=== PATIENT | female | born 1930 | race Caucasian/White ===

== ENCOUNTER 2016-06-26 07:15 | Emergency (ER) | payer MEDICARE ==
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
[2016-06-26 09:56] VITALS: BP 159/57
== END 2016-06-26 09:45 | disposition home or self-care (01) ==
LOC: ER 07:15
DX: R07.89 Other chest pain (principal); S00.81XA Abrasion of other part of head, initial encounter; W18.31XA Fall on same level due to stepping on an object, initial encounter; Z91.81 History of falling; Y93.E9 Activity, other interior property and clothing maintenance; Y92.122 Bedroom in nursing home as the place of occurrence of the external cause; E11.9 Type 2 diabetes mellitus without complications; Z79.4 Long term (current) use of insulin

== ENCOUNTER 2016-09-08 18:36 | Emergency (ER) | payer MEDICARE ==
--- NOTE | 2016-09-08 18:51 | ERNOTE ---
Date of Service: 09/08/16 Time Seen by Provider: 09/08/16 18:49 Stated Complaint: EDEMIA Presenting Symptoms:: cough Source: patient, RN notes reviewed, past records Exam Limitations: hard of hearing Immunizations: IMMUNIZATION HX Immunizations Up to Date Yes History of Influenza Vaccine Yes Hx Pneumococcal Vaccination Yes Allergies/Adverse Reactions: Allergies No Known Allergies Allergy (Verified 06/26/16 07:32) Home Medications: HOME MEDICATIONS Acetaminophen [Acetaminophen ER] 650 mg PO Q6H PRN 09/08/16 [Last Taken Unknown] Brimonidine Tartrate [Alphagan P 0.1% Ophthalmic Solution] 1 drop EACHEYE BID [Last Taken Unknown] Digoxin [Lanoxin] 0.125 mg PO DAILY 09/08/16 [Last Taken Unknown] Docusate Sodium [Doc-Q-Lace] 100 mg PO BID PRN 09/08/16 [Last Taken Unknown] Fluticasone Propionate [Flonase] 2 spray NS DAILY 09/08/16 [Last Taken Unknown] Furosemide 20 mg PO BID 09/08/16 [Last Taken Unknown] HYDROcodone/ACETAMINOPHEN [[place] 5-325] 1 tab PO Q8H PRN 09/08/16 [Last Taken Unknown] Insulin Glargine,Hum.rec.anlog [Lantus] 30 units SC HS 09/08/16 [Last Taken Unknown] Insulin Glargine,Hum.rec.anlog [Lantus] 50 units SC [facility] 09/08/16 [Last Taken Unknown] Loperamide HCl [Imodium A-D] 2 mg PO QID PRN 09/08/16 [Last Taken Unknown] Metoprolol Succinate [Toprol Xl] 100 mg PO HS 09/08/16 [Last Taken Unknown] Multivit,Tx with Iron,Minerals [Thera-M] 1 each PO DAILY 09/08/16 [Last Taken Unknown] Olmesartan Medoxomil [Benicar] 40 mg PO DAILY 09/08/16 [Last Taken Unknown] Potassium Chloride [Klor-Con 10] 10 meq PO BID 09/08/16 [Last Taken Unknown] Sennosides [Senna Lax] 8.6 mg PO BID PRN 09/08/16 [Last Taken Unknown] Simvastatin 10 mg PO HS 09/08/16 [Last Taken Unknown] - History of Present Ilness Narrative: Audrey is an 86-year-old female brought to the emergency department from the [facility] by a caregiver for a cough that has been ongoing for 3 weeks and increased swelling in her legs and feet that was just noticed today. She also reports some nasal congestion and drainage. She admits to sitting a lot without her feet elevated. She denies any discomfort. Frequency/Possible Cause: Reports: unknown cause Prior Treatment: Denies: recently seen Review of Systems - Review of Systems Constitutional: Absent: recent illness, fever, chills, fatigue, malaise EYE: Present: no symptoms reported ENT: Present: nose congestion, nasal drainage. Absent: sore throat Respiratory: Present: cough. Absent: shortness of breath, wheezing Cardiology: Present: edema. Absent: chest pain, claudication Gastrointestinal/Abdominal: Absent: eating less, drinking less Genitourinary: Present: no symptoms reported Musculoskeletal: Absent: muscle pain, joint pain Skin: Absent: rash, lesions, change in color Neurological: Absent: dizziness/light-headedness, weakness Endocrine: Present: no symptoms reported Hematologic/Lymphatic: Present: no symptoms reported Psych: Present: no symptoms reported - Patient's Past Medical History Patient History - Medical: Diabetes Type 2 Insulin Dependent, Dementia, Glaucoma Patient History - Cardiac/Respiratory: Atrial Fibrillation, Hypertension, Hyperlipidemia Patient History - Cancer: Melanoma Patient History - Surgical Procedures: Hysterectomy, Total Knee Replacement Patient History - Other: None - Social History Living Situations: assisted living Abuse History: No History of abuse Psych History: No pertinent hx Smoking Status: Never smoker Alcohol Use: none Drug Use: none - Immunizations Immunizations Up to Date: Yes Hx Pneumococcal Vaccination: Yes History of Influenza Vaccine: Yes Physical Exam - Physical Exam General Appearance: Present: wd/wn, alert, no apparent distress Eye Exam: Normal inspection: bilateral Ears, Nose, Throat: Present: hearing decreased, nasal congestion. Absent: sinus pain/drainage, pharyngeal erythema, pharyngeal swelling, dry mucous membranes Neck: Present: normal inspection, nontender, supple Respiratory: Present: no respiratory distress, normal breath sounds, no accessory muscle use, lungs clear Cardiovascular/Chest: Present: regular rate, rhythm, normal peripheral pulses, systolic murmur Extremity Exam: Present: normal range of motion, pedal edema - bilateral 3+ Neurological Exam: Present: alert, oriented, normal mood/affect, no motor/ sensory deficits Skin Exam: Present: normal color, warm/dry ED Progress - Results and Orders Patient's Lab Results:: I have reviewed the patient's lab results. - Vital Signs Patient's Vital Signs:: I have reviewed the patient's vital signs. Vital Signs: Vital Signs 09/08/16 18:40 Temperature 36.6 C Pulse Rate 69 Respiratory 18 Rate Blood Pressure 150/77 O2 Sat by Pulse 97 Oximetry - X-Ray X-Ray #1 X-Ray: chest Interpretation: Reviewed by me X-ray Comments: No acute cardiopulmonary process noted - Progress/Reassessment Chief Complaint: Cough Progress:: Unchanged Plan - Plan Plan: Patient is well appearing and reports that she is feeling fine. Her labs are essentially unremarkable. Her digoxin level is low at 0.2, but was 0.1 when last checked. Patient to continue current plan of care, encouraged to stay out of the heat and try to elevated her feet more. Departure - Departure Clinical Impression: Cough, Bilateral lower extremity edema Disposition: [place] self-care Condition: Good Instructions: Edema, [id number] Additional Instructions: Continue your routine medications Follow up with your doctor as needed Referrals: Cristo Olmedo MD [Primary Care Provider] -
[2016-09-08 19:07] LABS: Hematocrit 39.4 % (37.0-47.0); Hemoglobin 12.6 gm/dL (12.5-16.0); Mean Cell Volume 92.9 fl (78-100); Mean Corpuscular Hemoglobin 29.7 pg (27-31); Mean Platelet Volume 10.3 fl (6.0-9.5); Neutrophil # 4.3 K/mm3 (1.3-6.0); Neutrophil % 58.4 % (42-75.0); Platelet Count 169 K/mm3 (150-450); Red Blood Count 4.24 M/mm3 (4.2-5.4); Red Cell Distribution Width 13.1 % (11.5-14.0); White Blood Count 7.3 K/mm3 (4.0-10.5)
[2016-09-08 19:31] LABS: Albumin * 3.6 gm/dl (3.4-5.0); Anion Gap 8.3 mmol/L (6.8-13.8); BUN/Creatinine Ratio 24.6 (9.0-21.6); Bilirubin, Total 0.3 mg/dL (0.0-1.1); Ca. Corrected For Albumin 10.3 mg/dL (8.4-10.2); Calcium * 10.3 mg/dL (7.9-10.9); Potassium 4.3 mmol/L (3.4-4.6); Total Protein 6.8 gm/dL (6.2-8.2)
[2016-09-08 19:46] LABS: Digoxin 0.2 ng/mL (0.5-2.0)
[2016-09-08 19:55] VITALS: BP 168/48
== END 2016-09-08 20:09 | disposition home or self-care (01) ==
LOC: ER 18:36
DX: R05 Cough (principal); R60.0 Localized edema; E11.9 Type 2 diabetes mellitus without complications; Z79.4 Long term (current) use of insulin; I48.91 Unspecified atrial fibrillation; Z79.01 Long term (current) use of anticoagulants; I10 Essential (primary) hypertension; E78.5 Hyperlipidemia, unspecified; Z85.820 Personal history of malignant melanoma of skin

== ENCOUNTER 2017-03-24 18:49 | Emergency (ER) | payer MEDICARE ==
--- NOTE | 2017-03-24 19:36 | ERNOTE ---
Neuro HPI ER Record Date of Service: 03/24/17 Presenting Symptoms: other - shaky Time Seen by Provider: 03/24/17 19:19 Source: patient, family Exam Limitations: hard of hearing Immunizations: IMMUNIZATION HX Immunizations Up to Date Yes History of Influenza Vaccine Yes Hx Pneumococcal Vaccination Yes Allergies/Adverse Reactions: Allergies Allergy/AdvReac Type Severity Reaction Status Date / Time No Known Allergies Allergy Verified 03/24/17 19:01 Home Medications: HOME MEDICATIONS Acetaminophen [Acetaminophen ER] 650 mg PO Q6H PRN 09/08/16 [Last Taken Unknown] Brimonidine Tartrate [Alphagan P 0.1% Ophthalmic Solution] 1 drop EACHEYE BID [Last Taken Unknown] Digoxin [Lanoxin] 0.125 mg PO DAILY 09/08/16 [Last Taken Unknown] Docusate Sodium [Doc-Q-Lace] 100 mg PO BID PRN 09/08/16 [Last Taken Unknown] Fluticasone Propionate [Flonase] 2 spray NS DAILY 09/08/16 [Last Taken Unknown] Furosemide 20 mg PO BID 09/08/16 [Last Taken Unknown] HYDROcodone/ACETAMINOPHEN [[place] 5-325] 1 tab PO Q8H PRN 09/08/16 [Last Taken Unknown] Insulin Glargine,Hum.rec.anlog [Lantus] 30 units SC HS 09/08/16 [Last Taken Unknown] Insulin Glargine,Hum.rec.anlog [Lantus] 50 units SC [facility] 09/08/16 [Last Taken Unknown] Loperamide HCl [Imodium A-D] 2 mg PO QID PRN 09/08/16 [Last Taken Unknown] Metoprolol Succinate [Toprol Xl] 100 mg PO HS 09/08/16 [Last Taken Unknown] Multivit,Tx with Iron,Minerals [Thera-M] 1 each PO DAILY 09/08/16 [Last Taken Unknown] Olmesartan Medoxomil [Benicar] 40 mg PO DAILY 09/08/16 [Last Taken Unknown] Potassium Chloride [Klor-Con 10] 10 meq PO BID 09/08/16 [Last Taken Unknown] Sennosides [Senna Lax] 8.6 mg PO BID PRN 09/08/16 [Last Taken Unknown] Simvastatin 10 mg PO HS 07/13/17 [Last Taken Unknown] - History of Present Illness Narrative: Patient presents to the ED for an episode of shakiness. This is the second time this has happened. It happened last Monday also. She both times was at dinner and became shaky all over and was confused last time. Tonight this was associated with a near syncopal episode. No actual syncope. Both times Sx transient. Now Sx resolved. No focal weakness. No CP or SOB. Onset: other - dinner time Severity: moderate - Character of Deficits Additional Deficits: Absent: vision problems, difficulty swallowing Associated Symptoms: Denies: fever/chills, chest pain, neck/back pain, headache , seizure Prior Treament: Denies: recently seen Review of Systems - Review of Systems Constitutional: Absent: fever Respiratory: Absent: shortness of breath Cardiology: Absent: chest pain Gastrointestinal/Abdominal: Absent: abdominal pain Genitourinary: Absent: dysuria Musculoskeletal: Absent: neck pain Skin: Absent: rash Neurological: Present: See HPI - Patient's Past Medical History Patient History - Medical: Alzheimer's Disease, Diabetes Type 2 Insulin Dependent, Dementia, Glaucoma Patient History - Cardiac/Respiratory: Atrial Fibrillation, Hypertension, Hyperlipidemia Patient History - Cancer: Melanoma Patient History - Surgical Procedures: Hysterectomy, Total Knee Replacement Patient History - Other: None - Social History Abuse History: No History of abuse Psych History: No pertinent hx Smoking Status: Former smoker Alcohol Use: none Drug Use: none - Immunizations Immunizations Up to Date: Yes Hx Pneumococcal Vaccination: Yes History of Influenza Vaccine: Yes Physical Exam - Physical Exam General Appearance: Present: alert, no apparent distress Head Exam: Present: normal inspection, no evidence of injury Eye Exam: Normal inspection: bilateral, PERRL: bilateral Ears, Nose, Throat: Present: normal ENT inspection Neck: Present: normal inspection Respiratory: Present: no respiratory distress, normal breath sounds, no accessory muscle use, lungs clear Cardiovascular/Chest: Present: regular rate, rhythm Gastrointestinal/Abdominal: Present: normal bowel sounds, nontender, nondistended, soft Back Exam: Absent: CVA tenderness (R), CVA tenderness (L) Extremity Exam: Present: normal inspection Neurological Exam: Present: alert, normal mood/affect, no motor/sensory deficits , other - NIH - 0 Skin Exam: Present: normal color, warm/dry ED Progress - Results and Orders Patient's Lab Results:: I have reviewed the patient's lab results. - Vital Signs Patient's Vital Signs:: I have reviewed the patient's vital signs. Vital Signs: Vital Signs 03/24/17 03/24/17 18:52 19:00 Temperature 36.6 C 36.6 C Pulse Rate 60 60 Respiratory 16 16 Rate Blood Pressure 173/29 173/29 O2 Sat by Pulse 98 98 Oximetry - Progress/Reassessment Chief Complaint: Altered Mental Status - Transfer of Care Physician Sign Out: Austin Singh Receiving Physician: Lola Bonilla Pending Results: Labs Expected Disposition: Discharge Departure Clinical Impression: Shakiness - Departure Disposition: Home self-care Condition: Stable Referrals: Cristo lOmedo MD [Primary Care Provider] -
[2017-03-24 20:12] LABS: Hematocrit 39.5 % (37.0-47.0); Hemoglobin 12.7 gm/dL (12.5-16.0); Mean Corpuscular Hemoglobin 30.5 pg (27-31); Mean Corpuscular Hgb Conc 32.2 g/dl (32-36); Mean Platelet Volume 10.5 fl (6.0-9.5); Neutrophil # 2.9 K/mm3 (1.3-6.0); Neutrophil % 47.4 % (42-75.0); Platelet Count 124 K/mm3 (150-450); Red Blood Count 4.16 M/mm3 (4.2-5.4); Red Cell Distribution Width 12.6 % (11.5-14.0)
[2017-03-24 20:36] LABS: ALT 22 U/L (19-67); AST 17 U/L (0-48); Albumin * 3.2 gm/dl (3.4-5.0); Alkaline Phosphatase * 101 U/L (50-170); BUN/Creatinine Ratio 28.7 (9.0-21.6); Bilirubin, Total 0.3 mg/dL (0.0-1.1); Blood Urea Nitrogen 35 mg/dL (3-23); Ca. Corrected For Albumin 10.6 mg/dL (8.4-10.2); Calcium * 10.3 mg/dL (7.9-10.9); Chloride 108 mmol/L (97-106); Digoxin 0.1 ng/mL (0.5-2.0); Glucose * 159 mg/dL (70-110); Sodium 141 mmol/L (132-142); Total Protein 6.3 gm/dL (6.2-8.2); Troponin I Less than 0.017 ng/ml (0.00-0.10)
[2017-03-24 20:45] LABS: Urine Bilirubin Negative (NEGATIVE); Urine Blood 50 /ul (NEGATIVE); Urine Ketone Negative (NEGATIVE); Urine Nitrite Negative (NEGATIVE); Urine Protein Negative (NEGATIVE); Urine Specific Gravity 1.015 SP.GR. (1.005-1.010); Urine Urobilinogen Normal (NORMAL)
[2017-03-24 21:09] LABS: Urine Appearance Clear; Urine Bacteria TRACE; Urine Color Yellow; Urine RBC 0-5 /hpf (0-5); Urine WBC 0-5 /hpf (0-5)
[2017-03-24 22:27] VITALS: BP 122/65
--- NOTE | 2017-03-24 22:31 | ERNOTE ---
Neuro HPI ER Record Time Seen by Provider: 03/24/17 19:19 Immunizations: IMMUNIZATION HX Immunizations Up to Date Yes History of Influenza Vaccine Yes Hx Pneumococcal Vaccination Yes Allergies/Adverse Reactions: Allergies Allergy/AdvReac Type Severity Reaction Status Date / Time No Known Allergies Allergy Verified 03/24/17 19:01 Home Medications: HOME MEDICATIONS Acetaminophen [Acetaminophen ER] 650 mg PO Q6H PRN 09/08/16 [Last Taken Unknown] Brimonidine Tartrate [Alphagan P 0.1% Ophthalmic Solution] 1 drop EACHEYE BID [Last Taken Unknown] Docusate Sodium [Doc-Q-Lace] 100 mg PO BID PRN 09/08/16 [Last Taken Unknown] Fluticasone Propionate [Flonase] 2 spray NS DAILY 09/08/16 [Last Taken Unknown] Furosemide 20 mg PO BID 09/08/16 [Last Taken Unknown] Insulin Glargine,Hum.rec.anlog [Lantus] 30 units SC HS 09/08/16 [Last Taken Unknown] Insulin Glargine,Hum.rec.anlog [Lantus] 40 units SC [facility] 09/08/16 [Last Taken Unknown] Metoprolol Succinate [Toprol Xl] 100 mg PO HS 09/08/16 [Last Taken Unknown] Multivit,Tx with Iron,Minerals [Thera-M] 1 each PO DAILY 09/08/16 [Last Taken Unknown] Potassium Chloride [Klor-Con 10] 10 meq PO BID 09/08/16 [Last Taken Unknown] Sennosides [Senna Lax] 8.6 mg PO BID PRN 09/08/16 [Last Taken Unknown] Simvastatin 10 mg PO HS 09/08/16 [Last Taken Unknown] Digoxin [Digitek] 0.5 tab PO Q48H 03/24/17 [Last Taken Unknown] Losartan Potassium [Cozaar] 50 mg PO DAILY 03/24/17 [Last Taken Unknown] - History of Present Illness Narrative: Care taken over to follow up on lab results. Report received from Dr. Singh. I visited the patient and her daughter, explained what we are doing, the daughter verbalized understanding. She explained her problems, she spends one week with her mom (the patient) and one week with her [id number] who has ALS. The daughter just wanted to make sure that Mom's labs were good. We discussed further evaluation on an outpatient basis with a neurologist, daughter will decide that later. - Patient's Past Medical History Patient History - Medical: Alzheimer's Disease, Diabetes Type 2 Insulin Dependent, Dementia, Glaucoma Patient History - Cardiac/Respiratory: Atrial Fibrillation, Hypertension, Hyperlipidemia Patient History - Cancer: Melanoma Patient History - Surgical Procedures: Hysterectomy, Total Knee Replacement Patient History - Other: None - Social History Abuse History: No History of abuse Psych History: No pertinent hx Smoking Status: Former smoker Alcohol Use: none Drug Use: none - Immunizations Immunizations Up to Date: Yes Hx Pneumococcal Vaccination: Yes History of Influenza Vaccine: Yes ED Progress - Results and Orders Patient's Lab Results:: I have reviewed the patient's lab results. Results and Orders: Laboratory Results - last 24 hr 03/24/17 03/24/17 03/24/17 20:10 20:10 20:10 WBC 6.0 RBC 4.16 L Hgb 12.7 Hct 39.5 MCV 95.0 MCH 30.5 MCHC 32.2 RDW 12.6 Plt Count 124 L MPV 10.5 H Immature Gran % (Auto) 0.20 Immature Gran # (Auto) 0.01 Neutrophils % 47.4 Lymphocytes % 39.6 Monocytes % 9.0 Eosinophils % 3.0 Basophils % 0.8 Nucleated RBC % 0.0 Neutrophils # 2.9 Lymphocytes # 2.4 Monocytes # 0.5 Eosinophils # 0.2 Absolute Basophils 0.1 Sodium 141 Plasma Sodium 142 Potassium 4.0 Chloride 108 H Carbon Dioxide 30.0 Anion Gap 7.0 BUN 35 H Creatinine 1.22 Est GFR (Non-Af Amer) 44 L BUN/Creatinine Ratio 28.7 H Random Glucose 159 H Lactic Acid, Venous 1.2 Calcium 10.3 Calcium Adj for Albumin 10.6 H Total Bilirubin 0.3 AST 17 ALT 22 Alkaline Phosphatase 101 Troponin I Less than 0.017 Total Protein 6.3 Albumin 3.2 L Urine Color Urine Appearance Urine pH Ur Specific [place] Urine Protein Urine Glucose (UA) Urine Ketones Urine Blood Urine Nitrate Urine Bilirubin Urine Urobilinogen Ur Leukocyte Esterase Urine RBC Urine WBC Ur Epithelial Cells Urine Bacteria Urine Culture Comments Digoxin 0.1 L 03/24/17 20:22 WBC RBC Hgb Hct MCV MCH MCHC RDW Plt Count MPV Immature Gran % (Auto) Immature Gran # (Auto) Neutrophils % Lymphocytes % Monocytes % Eosinophils % Basophils % Nucleated RBC % Neutrophils # Lymphocytes # Monocytes # Eosinophils # Absolute Basophils Sodium Plasma Sodium Potassium Chloride Carbon Dioxide Anion Gap BUN Creatinine Est GFR (Non-Af Amer) BUN/Creatinine Ratio Random Glucose Lactic Acid, Venous Calcium Calcium Adj for Albumin Total Bilirubin AST ALT Alkaline Phosphatase Troponin I Total Protein Albumin Urine Color Yellow Urine Appearance Clear Urine pH 6.0 Ur Specific [place] 1.015 Urine Protein Negative Urine Glucose (UA) Negative Urine Ketones Negative Urine Blood 50 H Urine Nitrate Negative Urine Bilirubin Negative Urine Urobilinogen Normal Ur Leukocyte Esterase Negative Urine RBC 0-5 Urine WBC 0-5 Ur Epithelial Cells 5-10 H Urine Bacteria Trace Urine Culture Comments No culture indicated Digoxin - Vital Signs Patient's Vital Signs:: I have reviewed the patient's vital signs. Vital Signs: Vital Signs 03/24/17 03/24/17 03/24/17 18:52 19:00 20:45 Temperature 36.6 C 36.6 C Pulse Rate 60 60 58 L Respiratory 16 16 12 Rate Blood Pressure 173/29 173/29 179/49 O2 Sat by Pulse 98 98 98 Oximetry - EKG EKG: RBBB, other - Sinus bradycardia with a first degree AV Block EKG read: Interp. by me EKG Comments: Done at 20:06 - Progress/Reassessment Chief Complaint: Altered Mental Status Progress Note-Subjective: 03/24/17 22:20 I reviewed the patient's lab results, and compared them to previous visits. She appears mildly dehydrated but otherwise well. I discussed this with the daughter , [facility] Departure Clinical Impression: Shakiness, Episodes of decreased attentiveness - Departure Disposition: [place] self-care Condition: Stable Instructions: Confusion Referrals: Cristo Olmedo MD [Primary Care Provider] - (3-5 days)
== END 2017-03-24 22:46 | disposition home or self-care (01) ==
LOC: ER 18:49
DX: R25.1 Tremor, unspecified (principal); R41.89 Other symptoms and signs involving cognitive functions and awareness; E11.9 Type 2 diabetes mellitus without complications; Z79.4 Long term (current) use of insulin; E78.5 Hyperlipidemia, unspecified; I10 Essential (primary) hypertension; I48.91 Unspecified atrial fibrillation; Z85.820 Personal history of malignant melanoma of skin; Z87.891 Personal history of nicotine dependence

== ENCOUNTER 2018-03-28 10:11 | Inpatient (IN) ==
--- NOTE | 2018-03-28 10:28 | ERNOTE ---
ER Female HPI Date of Service: 03/28/18 Stated Complaint: uti Presenting Symptoms: other - UTI, Alterred mental status Time Seen by Provider: 03/28/18 10:27 Source: family, EMS, RN notes reviewed, past records Exam Limitations: clinical condition Immunizations: IMMUNIZATION HX Immunizations Up to Date Yes History of Influenza Vaccine Yes Hx Pneumococcal Vaccination Yes Allergies/Adverse Reactions: Allergies aspirin Adverse Reaction (Verified 03/28/18 10:17) Gastric upset Home Medications: HOME MEDICATIONS Brimonidine Tartrate [Alphagan P 0.1% Ophthalmic Solution] 1 drp EACHEYE BID 09/08/16 [Last Taken Unknown] Multivit,Tx with Iron,Minerals [Thera-M] 1 ea PO DAILY 09/08/16 [Last Taken Unknown] fluticasone 50 mcg/actuation nasal spray,suspension 2 spray LIZBET DAILY #16 g 08/28/17 [Last Taken Unknown] sennosides 8.6 mg tablet 8.6 mg PO BID PRN #90 tab 08/28/17 [Last Taken Unknown] digoxin 125 mcg tablet See Rx Instructions PO .COMPLEX #90 tab 09/26/17 [Last Taken Unknown] alprazolam 0.25 mg tablet 0.25 mg PO TID PRN #30 tab 10/19/17 [Last Taken Unknown] blood sugar diagnostic strips See Dose Instructions .ROUTE .MEDSUPPLY #20 ea 10/26/17 [Last Taken Unknown] insulin syringe U-100 with needle 0.5 mL 31 gauge x 5/16" See Dose Instructions .ROUTE .MEDSUPPLY #10 ea 10/26/17 [Last Taken Unknown] lancets 30 gauge See Dose Instructions .ROUTE .MEDSUPPLY #25 ea 10/26/17 [Last Taken Unknown] lancing device with lancets kit See Dose Instructions .ROUTE .MEDSUPPLY #1 ea 10/26/17 [Last Taken Unknown] pen needle,diabetic dual safety 30 gauge x 3/16" See Dose Instructions .ROUTE .MEDSUPPLY #100 ea 10/26/17 [Last Taken Unknown] simvastatin 10 mg tablet 10 mg PO HS #90 tab 11/29/17 [Last Taken Unknown] acetaminophen ER 650 mg tablet,extended release 1,300 mg PO BID #360 tab 11/30/17 [Last Taken Unknown] alcohol swabs See Rx Instructions TP .COMPLEX #4000 ea 11/30/17 [Last Taken Unknown] insulin glargine (U-100) 100 unit/mL (3 mL) subcutaneous pen 10 unit SUB-Q DAILY #15 ml 03/07/18 [Last Taken Unknown] blood sugar diagnostic strips See Dose Instructions .ROUTE .MEDSUPPLY #100 ea 03/13/18 [Last Taken Unknown] carbamide peroxide 6.5 % ear drops 1 drp OT DAILY PRN ml 03/14/18 [Last Taken Unknown] furosemide 20 mg tablet See Rx Instructions .ROUTE .COMPLEX #56 tablet 03/14/18 [Last Taken Unknown] losartan 50 mg tablet See Rx Instructions .ROUTE .COMPLEX #28 tablet 03/14/18 [Last Taken Unknown] metoprolol succinate ER 100 mg tablet,extended release 24 hr See Rx Instructions .ROUTE .COMPLEX #28 tablet 03/14/18 [Last Taken Unknown] potassium chloride ER 10 mEq tablet,extended release See Rx Instructions .ROUTE .COMPLEX #56 tablet 03/14/18 [Last Taken Unknown] bisacodyl 10 mg rectal suppository 10 mg [place] DAILY PRN 3 Days #5 ea 03/26/18 [Last Taken Unknown] Ciprofloxacin HCl [Cipro] 500 mg PO BID 03/27/18 [Last Taken Unknown] - History of Present Illness Narrative: Audrey is a 88 year old female brought to the ED for a UTI and altered mental status. She was diagnosed with a UTI on 03/23. Her urine culture grew e.coli that was pansensitive. She was started on Cipro on 03/26, but due to increasing confusion and agitation, she was only given one dose. I saw the patient yesterday. She was somnolent but arouseable on arrival. Her daughter reported that it had taken 3 staff members to get her up yesterday. She is normally ambulatory with her walker. Her WBC was mildly elevated, but her lactic acid was normal. Her chemistries were unremarkable. She was given a liter of IV NS and a gram of Rocephin IV. She became more alert and appeared to be feeling better. She was also taking fluids orally and took a dose of Cipro po. She became somnolent again when the ambulance arrived to take her back to the [facility] yesterday. She has continued to be very difficult to arouse. She intermittently grimaces and tremors. She has not had any medications or other oral intake. Prior Treatment: Present: recently seen, currently on antibiotics Review of Systems - Narrative Narrative: ROS limited, provided by daughter - Review of Systems Constitutional: Present: decreased activity level. Absent: fever EYE: Present: no symptoms reported ENT: Present: no symptoms reported Respiratory: Present: no symptoms reported Cardiology: Present: no symptoms reported Gastrointestinal/Abdominal: Present: eating less, drinking less. Absent: vomiting, diarrhea Genitourinary: Present: no symptoms reported Musculoskeletal: Present: no symptoms reported Skin: Present: no symptoms reported Neurological: Present: no symptoms reported Endocrine: Present: no symptoms reported Hematologic/Lymphatic: Present: no symptoms reported Psych: Present: no symptoms reported Medical History (Last Reviewed 03/28/18 @ 13:02 by Ashlie Valero NP) Osteoporosis (Chronic) Onset Date: ~07/13/99 Osteoarthritis (Chronic) Onset Date: Unknown Hypertension (Chronic) Onset Date: Unknown Hyperlipemia (Chronic) Onset Date: Unknown Diabetes mellitus, type II (Chronic) Onset Date: Unknown Dementia (Chronic) Onset Date: ~2015 Afib Alzheimer disease DNR (do not resuscitate) Glaucoma Onset Date: Unknown 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 Bernal ; 03/25/08 right, 02/12/08 left H/O cardiac catheterization Onset Date: Unknown H/O: hysterectomy Onset Date: ~1960 History of left knee replacement Onset Date: ~05/2006 Hx of colonoscopy Onset Date: Unknown Status post right knee replacement Onset Date: ~10/2006 Family History: Family History (Last Reviewed 03/28/18 @ 13:02 by Ashlie Valero NP) Father Diabetes Lymphoma Mother Degenerative arthritis of temporomandibular joint Brother Parkinsons Bladder cancer Arthritis Son Diabetes Hyperlipemia Daughter Hypertension Social History: Preferred Language Eritrean Smoking Status Never smoker Abuse History No History of abuse Psych History No pertinent hx Alcohol Use none Drug Use none (Last Updated 03/12/18 @ 10:33 by Cristo Olmedo MD) No Social History Section defined Physical Exam - Physical Exam General Appearance: Present: wd/wn, lethargic, other - Moans and tremors with attempts to awaken Head Exam: Present: normal inspection, no evidence of injury Eye Exam: Normal inspection: bilateral, PERRL: bilateral Ears, Nose, Throat: Present: normal except -, dry mucous membranes Respiratory: Present: no respiratory distress, normal breath sounds, no accessory muscle use, lungs clear Cardiovascular/Chest: Present: normal peripheral pulses, tachycardia, systolic murmur Gastrointestinal/Abdominal: Present: normal bowel sounds, nondistended, soft Extremity Exam: Present: normal inspection, no edema Neurological Exam: Absent: alert, oriented, normal mood/affect, no motor/sensory deficits Skin Exam: Present: normal color, warm/dry Progress - Results and Orders Patient's Lab Results:: I have reviewed the patient's lab results. - Vital Signs Patient's Vital Signs:: I have reviewed the patient's vital signs. Vital Signs: Vital Signs 03/28/18 10:11 Pulse Rate 108 H Respiratory Rate 15 Blood Pressure 205/68 H O2 Sat by Pulse Oximetry 98 - EKG EKG #1 EKG: NSR, RBBB EKG read: Reviewed by me - X-Ray X-Ray #1 X-Ray: chest Interpretation: Reviewed by me X-ray Comments: No acute cardiopulmonary process - CT/Ultrasound CT/Ultrasound Narrative: CT head is without acute intracranial abnormalities - Progress/Reassessment Chief Complaint: Urinary Tract Problems Progress:: Unchanged Plan - Plan Plan: Etiology of patient's altered mental status remains unclear. There does not appear to be an infectious source as her urine culture and blood cultures from yesterday do not show any growth and her WBC and lactate are normal. Chest xray is also unremarkable. Her EKG and troponin are negative for any indication of a cardiac event. Her head CT does not show any acute process. Her blood pressure was elevated in the 200's systolic on arrival. She was given Labetolol 10 mg IVP and is currently 139/70 with a heart rate in the 60's. The patient has continued to be somnolent while in the ED. She will open her eyes briefly but does not seem to even recognize her daughter which is unusual for her. She does not follow commands. She is not alert enough to attempt any oral intake. Findings were discussed with the patient's daughter. Dr. Cintron was contacted regarding admission. Case management was consulted as well. The patient will be admitted as observation status. The family is in agreement with the plan. Departure Clinical Impression: Failure of outpatient treatment Altered mental status Qualifiers: Altered mental status type: somnolence Qualified Code(s): R40.0 - Somnolence - Departure Disposition: Still a patient Condition: Poor
[2018-03-28] MEDS ORDERED: NORMAL SALINE 1,000 ML IV ONE ×3 (10:45→14:00)
[2018-03-28] MEDS ORDERED: LABETALOL HCL 5 MG/ML VIAL IV ONE (10:45)
[2018-03-28 11:04] LABS: Hematocrit 41.2 % (37.0-47.0); Hemoglobin 13.8 gm/dL (12.5-16.0); Mean Cell Volume 93.2 fl (78-100); Mean Corpuscular Hemoglobin 31.2 pg (27-31); Mean Corpuscular Hgb Conc 33.5 g/dl (32-36); Mean Platelet Volume 10.1 fl (8-12.5); Neutrophil % 77.5 % (42-75.0); Platelet Count 158 K/mm3 (150-450); Red Blood Count 4.42 M/mm3 (4.2-5.4); Red Cell Distribution Width 12.1 % (11.5-14.0); White Blood Count 10.3 K/mm3 (4.0-10.5)
[2018-03-28] MEDS: NORMAL SALINE 1,000 ML IV SCH ×3 (11:27→15:22)
--- NOTE | 2018-03-28 11:42 | ANES ---
Anesthesia Procedure Note Procedure Note: ANESTHESIA PROCEDURE NOTE Date of procedure:[]. 03/28/2018 Time of procedure:[]. 1125 Performed by: Gus Hardwick CRNA Tester Operator Helper: [] None . Preprocedure diagnosis: []. Urinary tract infection. Difficult IV access Post procedure diagnosis: Same. Procedure:[] IV start Indications: []. Difficult IV access Findings: [] 22-gauge Angiocath IV started and patient's left forearm EBL: Minimal. Fluids: N/A. Specimen: N/A. Post procedure condition: The patient tolerated the procedure well. No complications were noted. Thank you for this consultation Gus Hardwick CRNA
[2018-03-28 11:47] LABS: Albumin * 3.4 gm/dl (3.4-5.0); Anion Gap 16.2 mmol/L (6.8-13.8); BUN/Creatinine Ratio 12.9 (9.0-21.6); Bilirubin, Total 0.7 mg/dL (0.0-1.1); Calcium * 10.8 mg/dL (7.9-10.9); Potassium 4.2 mmol/L (3.4-4.6); Total Protein 6.7 gm/dL (6.2-8.2)
[2018-03-28] MEDS ORDERED: ENALAPRILAT DIHYDRATE 1.25 MG/ML VIAL IV SCH (17:00)
--- NOTE | 2018-03-28 17:05 | HP ---
Chief Complaint - Chief Complaint Date of Service: 03/28/18 Time of Service: 16:59 Chief Complaint: Altered mental status History of Present Illness: 88-year-old female with past medical history of dementia, diabetes, hypertension, hyperlipidemia, atrial fibrillation, hearing loss presents to the emergency room with altered mental status. 5 days days prior to presentation (March 23) she had been noticed to have altered mentation. On March 26 she was started on ciprofloxacin for pansensitive E. coli growing in the urine. The following day she was unable to take her medication and mentation had not improved so she was sent to the emergency department. In the emergency room she was given 1 dose of ceftriaxone and IV fluid, hydration after which her mentation improved she was more alert and awake was able to drink a little. She was discharged back to the [facility] when at the [facility] her mentation again deteriorated and she was no longer able to take anything by mouth. She was sent back to the emergency room today. CT head is negative for acute findings, chest x-ray is negative for acute cardiopulmonary abnormalities. Laboratory results are not significant. She has been admitted for observation patient is a DNR her daughter is at bedside and is aware that hospice may be an option for her mother. 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 Bernal ; 03/25/08 right, 02/12/08 left H/O cardiac catheterization Onset Date: Unknown H/O: hysterectomy Onset Date: ~1960 History of left knee replacement Onset Date: ~05/2006 Hx of colonoscopy Onset Date: Unknown Status post right knee replacement Onset Date: ~10/2006 Family History: Family History (Last Reviewed 03/28/18 @ 15:05 by Simone Fair RN) Father Diabetes Lymphoma Mother Degenerative arthritis of temporomandibular joint Brother Parkinsons Bladder cancer Arthritis Son Diabetes Hyperlipemia Daughter Hypertension Social History: Patient Lives/Resources [facility] Utilized Occupation Retired Preferred Language Pakistani Do you have any jain or Yes: Yarsani cultural preference? Smoking Status Former smoker Have you smoked in the past 12 No months Do you dip or chew tobacco No Abuse History No History of abuse Psych History No pertinent hx Alcohol Use none Drug Use none (Last Updated 03/12/18 @ 10:33 by Cristo Olmedo MD) No Social History Section defined Review Of Systems (GEN) - Review of Systems Generalized/Overall Review: Present: No Symptoms Reported - Unable to obtain review of systems due to the patient's mentation Immunizations: IMMUNIZATION HX Immunizations Up to Date Yes History of Influenza Vaccine Yes Hx Pneumococcal Vaccination Yes Allergies/Adverse Reactions: Allergies Allergy/AdvReac Type Severity Reaction Status Date / Time aspirin AdvReac Gastric Verified 03/28/18 15:05 upset Home Medications: HOME MEDICATIONS Brimonidine Tartrate [Alphagan P 0.1% Ophthalmic Solution] 1 drp EACHEYE BID 09/08/16 [Last Taken Unknown] Multivit,Tx with Iron,Minerals [Thera-M] 1 ea PO DAILY 09/08/16 [Last Taken Unknown] fluticasone 50 mcg/actuation nasal spray,suspension 2 spray LIZBET DAILY #16 g 08/28/17 [Last Taken Unknown] sennosides 8.6 mg tablet 8.6 mg PO BID PRN #90 tab 08/28/17 [Last Taken Unknown] digoxin 125 mcg tablet See Rx Instructions PO .COMPLEX #90 tab 09/26/17 [Last Taken Unknown] alprazolam 0.25 mg tablet 0.25 mg PO TID PRN #30 tab 10/19/17 [Last Taken Unknown] blood sugar diagnostic strips See Dose Instructions .ROUTE .MEDSUPPLY #20 ea 10/26/17 [Last Taken Unknown] insulin syringe U-100 with needle 0.5 mL 31 gauge x 5/16" See Dose Instructions .ROUTE .MEDSUPPLY #10 ea 10/26/17 [Last Taken Unknown] lancets 30 gauge See Dose Instructions .ROUTE .MEDSUPPLY #25 ea 10/26/17 [Last Taken Unknown] lancing device with lancets kit See Dose Instructions .ROUTE .MEDSUPPLY #1 ea 10/26/17 [Last Taken Unknown] pen needle,diabetic dual safety 30 gauge x 3/16" See Dose Instructions .ROUTE .MEDSUPPLY #100 ea 10/26/17 [Last Taken Unknown] simvastatin 10 mg tablet 10 mg PO HS #90 tab 11/29/17 [Last Taken Unknown] acetaminophen ER 650 mg tablet,extended release 1,300 mg PO BID #360 tab 11/30/17 [Last Taken Unknown] alcohol swabs See Rx Instructions TP .COMPLEX #4000 ea 11/30/17 [Last Taken Unknown] insulin glargine (U-100) 100 unit/mL (3 mL) subcutaneous pen 10 unit SUB-Q DAILY #15 ml 03/07/18 [Last Taken Unknown] blood sugar diagnostic strips See Dose Instructions .ROUTE .MEDSUPPLY #100 ea 03/13/18 [Last Taken Unknown] carbamide peroxide 6.5 % ear drops 1 drp OT DAILY PRN ml 03/14/18 [Last Taken Unknown] furosemide 20 mg tablet See Rx Instructions .ROUTE .COMPLEX #56 tablet 03/14/18 [Last Taken Unknown] losartan 50 mg tablet See Rx Instructions .ROUTE .COMPLEX #28 tablet 03/14/18 [Last Taken Unknown] metoprolol succinate ER 100 mg tablet,extended release 24 hr See Rx Instructions .ROUTE .COMPLEX #28 tablet 03/14/18 [Last Taken Unknown] potassium chloride ER 10 mEq tablet,extended release See Rx Instructions .ROUTE .COMPLEX #56 tablet 03/14/18 [Last Taken Unknown] bisacodyl 10 mg rectal suppository 10 mg GA DAILY PRN 3 Days #5 ea 03/26/18 [Last Taken Unknown] Ciprofloxacin HCl [Cipro] 500 mg PO BID 03/27/18 [Last Taken Unknown] Exam - Exam Vital Signs: Vital Signs - Last Taken Temp 37.2 C 03/28/18 14:40 Pulse 103 H 03/28/18 14:40 Resp 18 03/28/18 14:40 BP 184/69 H 03/28/18 14:40 Pulse Ox 97 03/28/18 14:40 Constitutional: Present: No distress, Lethargic, Somnolent, Elderly Neck: Present: non-tender, supple, trachea midline. Absent: lymphadenopathy (R), lymphadenopathy (L) Respiratory: Present: no accessory muscle use, rales, No wheezing. Absent: crackles, rhonchi Cardiovascular/Chest: Present: regular rate, rhythm, no edema, systolic murmur - This is like the weekend to go away because this is going away to Peripheral Pulses: dorsalis-pedis (R): 2+, dorsalis-pedis (L): 2+ - Wears home and I will Abdomen: Present: Normal bowel sounds, soft, nontender - You have kids to Extremity: Present: no pedal edema, no calf tenderness, other - Tremors of bilateral upper extremity are noted Skin Exam: Present: normal color, warm/dry Eye contact: Present: cooperative - I Diagnostic Studies: Abnormal Lab Results 03/28/18 03/28/18 Range/Units 10:55 10:55 MCH 31.2 H (27-31) pg Immature Gran % (Auto) 0.50 H (0.001-0.429) % Immature Gran # (Auto) 0.05 H (0.000-0.0310) K/mm3 Neutrophils % 77.5 H (42-75.0) % Lymphocytes % 13.9 L (20-51) % Neutrophils # 8.0 H (1.3-6.0) K/mm3 Lymphocytes # 1.43 L (1.5-3.5) k/mm3 Sodium 144 H (132-142) mmol/L Plasma Sodium 146 H (130-142) mmol/L Anion Gap 16.2 H (6.8-13.8) mmol/L Random Glucose 251 H (70-110) mg/dL Calcium Adj for Albumin 11.0 H (8.4-10.2) mg/dL Laboratory Results WBC 10.3 K/mm3 (4.0-10.5) 03/28/18 10:55 RBC 4.42 M/mm3 (4.2-5.4) 03/28/18 10:55 Hgb 13.8 gm/dL (12.5-16.0) 03/28/18 10:55 Hct 41.2 % (37.0-47.0) 03/28/18 10:55 MCV 93.2 fl (78-100) 03/28/18 10:55 MCH 31.2 pg (27-31) H 03/28/18 10:55 MCHC 33.5 g/dl (32-36) 03/28/18 10:55 RDW 12.1 % (11.5-14.0) 03/28/18 10:55 Plt Count 158 K/mm3 (150-450) 03/28/18 10:55 MPV 10.1 fl (8-12.5) 03/28/18 10:55 Immature Gran % (Auto) 0.50 % (0.001-0.429) H 03/28/18 10:55 Immature Gran # (Auto) 0.05 K/mm3 (0.000-0.0310) H 03/28/18 10:55 Neutrophils % 77.5 % (42-75.0) H 03/28/18 10:55 Lymphocytes % 13.9 % (20-51) L 03/28/18 10:55 Monocytes % 7.0 % (0.0-9) 03/28/18 10:55 Eosinophils % 0.8 % (0.0-3.0) 03/28/18 10:55 Basophils % 0.3 % (0.0-1.0) 03/28/18 10:55 Nucleated RBC % 0.0 k/mm3 (0-1) 03/28/18 10:55 Neutrophils # 8.0 K/mm3 (1.3-6.0) H 03/28/18 10:55 Lymphocytes # 1.43 k/mm3 (1.5-3.5) L 03/28/18 10:55 Monocytes # 0.7 k/mm3 (0.0-1.0) 03/28/18 10:55 Eosinophils # 0.1 k/mm3 (0.0-0.7) 03/28/18 10:55 Absolute Basophils 0.0 k/mm3 (0.0-0.1) 03/28/18 10:55 Sodium 144 mmol/L (132-142) H 03/28/18 10:55 Plasma Sodium 146 mmol/L (130-142) H 03/28/18 10:55 Potassium 4.2 mmol/L (3.4-4.6) 03/28/18 10:55 Chloride 104 mmol/L (97-106) 03/28/18 10:55 Carbon Dioxide 28.0 mmol/L (24-32.6) 03/28/18 10:55 Anion Gap 16.2 mmol/L (6.8-13.8) H 03/28/18 10:55 BUN 12 mg/dL (3-23) 03/28/18 10:55 Creatinine 0.93 mg/dL (0.4-1.4) 03/28/18 10:55 Est GFR (Non-Af Amer) 60 mL/min (60-130) 03/28/18 10:55 BUN/Creatinine Ratio 12.9 (9.0-21.6) 03/28/18 10:55 Random Glucose 251 mg/dL (70-110) H 03/28/18 10:55 Lactic Acid, Venous 1.2 mmol/L (0.4-2.0) 03/28/18 10:55 Calcium 10.8 mg/dL (7.9-10.9) 03/28/18 10:55 Calcium Adj for Albumin 11.0 mg/dL (8.4-10.2) H 03/28/18 10:55 Total Bilirubin 0.7 mg/dL (0.0-1.1) 03/28/18 10:55 AST 19 U/L (0-48) 03/28/18 10:55 ALT 21 U/L (19-67) 03/28/18 10:55 Alkaline Phosphatase 117 U/L (50-170) 03/28/18 10:55 Troponin I Less than 0.017 ng/mL (0.00-0.10) 03/28/18 10:55 Total Protein 6.7 gm/dL (6.2-8.2) 03/28/18 10:55 Albumin 3.4 gm/dl (3.4-5.0) 03/28/18 10:55 Assessment/Plan - Narrative Narrative: 88-year-old female with a history of dementia presents with altered mental status. Etiology is unclear. She was found to have a positive UA and had been started on ciprofloxacin for 1 dose. After which she was unable to take anything by mouth and received 1 dose of ceftriaxone IV. CT head is negative for any acute abnormalities, chest x-ray unremarkable, laboratory results unremarkable. She is hypertensive because she is not taking her medications. She is unable to tolerate anything by mouth due to her mentation. She has been admitted for observation. - Assessment/Plan (1) Mental status change Assessment: Etiology unclear. Her UA was positive and I will continue treating her with IV ceftriaxone. If the urinary tract infection is the next because of her mentation she should start to improve by tomorrow. Questionable ischemic stroke, after discussion with the patient's daughter we decided not to pursue MRI at this time because it w. Ould not change our plan of care we would also have to sedate her in order to get the test which would not be beneficial improvement of her mental status. Problem: Acute Qualifiers: Altered mental status type: somnolence Qualified Code(s): R40.0 - Somnolence (2) Hypertension Assessment: Blood pressure is elevated because the patient is not able to take her oral medications. She did receive 1 dose of labetalol which brought her systolic blood pressure 200. I will start her on Vasotec every 6 hours with hold parameters. Problem: Chronic Qualifiers: Hypertension type: essential hypertension Qualified Code(s): I10 - Essential (primary) hypertension (3) Dementia Assessment: Mentation has declined over the past 5 days. This may be part of normal decline seen in dementia patients. Daughter Tess who is at bedside is the healthcare proxy and states that her mom is a DO NOT RESUSCITATE. She would prefer her mom to be discharged back to the [facility] if possible even if it is with hospice, rather than a alf. Problem: Chronic Qualifiers: Dementia type: Alzheimer's disease
[2018-03-28] MEDS: ENALAPRILAT DIHYDRATE 1.25 MG/ML VIAL IV SCH (17:53)
[2018-03-29] MEDS ORDERED: NORMAL SALINE 1,000 ML IV PRN (01:23)
[2018-03-29] MEDS: KETOROLAC TROMETHAMINE 15 MG/ML VIAL IV PRN ×2 (02:39→09:23)
[2018-03-29] MEDS: ENALAPRILAT DIHYDRATE 1.25 MG/ML VIAL IV SCH ×5 (02:50→22:54)
[2018-03-29 05:42] LABS: Hematocrit 36.6 % (37.0-47.0); Hemoglobin 12.3 gm/dL (12.5-16.0); Mean Cell Volume 92.9 fl (78-100); Mean Corpuscular Hemoglobin 31.2 pg (27-31); Mean Corpuscular Hgb Conc 33.6 g/dl (32-36); Mean Platelet Volume 9.9 fl (8-12.5); Neutrophil # 7.6 K/mm3 (1.3-6.0); Neutrophil % 76.9 % (42-75.0); Platelet Count 141 K/mm3 (150-450); Red Blood Count 3.94 M/mm3 (4.2-5.4); White Blood Count 9.8 K/mm3 (4.0-10.5)
[2018-03-29 05:52] LABS: Albumin * 2.9 gm/dl (3.4-5.0); Anion Gap 14.1 mmol/L (6.8-13.8); BUN/Creatinine Ratio 10.6 (9.0-21.6); Bilirubin, Total 0.7 mg/dL (0.0-1.1); Ca. Corrected For Albumin 10.7 mg/dL (8.4-10.2); Calcium * 10.1 mg/dL (7.9-10.9); Carbon Dioxide 25.7 mmol/L (24-32.6); Potassium 3.8 mmol/L (3.4-4.6)
--- NOTE | 2018-03-29 11:56 | PN ---
Subjective - Date and Time Seen Date: 03/29/18 Time: 11:40 Subjective Narrative: Patient continues to be nonverbal but does groan when she is moved. She does not follow commands but responds to painful stimuli. Objective Objective Narrative: Daughter at bedside, Tess, states that the patient continues to have altered mentation. She is moaning when she is moved, and does not seem to recognize her which she would have at baseline. Daughter Tess states that overnight the patient had a moment of clear speech where she said "I am tired of this."She states that her mom appears to be in pain every time she is moved especially with the right leg when the physical therapist came to evaluate her. - Review of Systems Respiratory: Reports: Other - Unable to obtain a review of systems because the patient is nonverbal, does not follow commands, and is confused. - Vitals Vitals: Last Vital Signs Temp 37.5 C 03/29/18 07:50 Pulse 112 H 03/29/18 08:01 Resp 22 H 03/29/18 07:50 BP 154/76 H 03/29/18 08:01 Pulse Ox 98 03/29/18 07:50 - Abnormal Lab Findings Abnormal Lab Findings: Abnormal Lab Results 03/28/18 03/29/18 03/29/18 Range/Units 10:55 05:34 05:34 RBC 3.94 L (4.2-5.4) M/mm3 Hgb 12.3 L (12.5-16.0) gm/dL Hct 36.6 L (37.0-47.0) % MCH 31.2 H (27-31) pg Plt Count 141 L (150-450) K/mm3 Immature Gran # (Auto) 0.04 H (0.000-0.0310) K/mm3 Neutrophils % 76.9 H (42-75.0) % Lymphocytes % 12.8 L (20-51) % Neutrophils # 7.6 H (1.3-6.0) K/mm3 Lymphocytes # 1.26 L (1.5-3.5) k/mm3 Sodium 144 H 143 H (132-142) mmol/L Plasma Sodium 146 H 145 H (130-142) mmol/L Chloride 107 H (97-106) mmol/L Anion Gap 16.2 H 14.1 H (6.8-13.8) mmol/L Random Glucose 251 H 220 H (70-110) mg/dL Calcium Adj for Albumin 11.0 H 10.7 H (8.4-10.2) mg/dL ALT 16 L (19-67) U/L Total Protein 6.0 L (6.2-8.2) gm/dL Albumin 2.9 L (3.4-5.0) gm/dl - Exam Constitutional: Present: Somnolent, Elderly Neck: Present: supple, trachea midline. Absent: lymphadenopathy (R), lymphadenopathy (L) Respiratory: Present: lungs clear. Absent: crackles, rhonchi, wheezing Cardiovascular/Chest: Present: normal peripheral pulses, regular rate, rhythm, systolic murmur Abdomen: Present: Normal bowel sounds, soft, nontender Extremity: Present: no pedal edema Skin Exam: Present: normal color, warm/dry Assessment/Plan Plan Narrative: 88-year-old female with a past medical history of dementia, hypertension, diabetes, atrial fibrillation presents from assisted living, the [facility], with altered mental status after which she was found to be positive for urinary tract infection. - Problems/Diagnosis (1) Mental status change Problem: Acute Qualifiers: Altered mental status type: somnolence Qualified Code(s): R40.0 - Somnolence Narrative: Etiology of altered mentation continues to be unclear. May be secondary to pain versus UTI versus progression of her underlying dementia. I will order x-ray of her right lower extremity (hip, knee, and ankle). Continue ceftriaxone day 2 of 5. She was evaluated by the physical therapist and was unable to perform even simple tasks of sitting up on the side of her bed without assistance. (2) Hypertension Problem: Chronic Qualifiers: Hypertension type: essential hypertension Qualified Code(s): I10 - Essential (primary) hypertension Narrative: Blood pressure improved with Vasotec. She is not able to tolerate oral medications, continue Vasotec. (3) Dementia Problem: Chronic Qualifiers: Dementia type: Alzheimer's disease Narrative: She has had dementia for several years and has been living at the [facility] in the memory care unit. Her decline in mentation and inability to perform her ADLs may be secondary to progression of her dementia. We will have hospice come and evaluate her to see if she is a candidate for discharge with hospice care.
--- NOTE | 2018-03-29 12:50 | ANES ---
Anesthesia Procedure Note Procedure Note: ANESTHESIA PROCEDURE NOTE Date of Procedure: 03/29/2018. Time of procedure: 1130. Performed by: Aric Campbell CRNA Calendering Supervisor: None. Preprocedure diagnosis: Difficult IV access. Post procedure diagnosis: Same. Procedure: Peripheral vein IV insertion. Indications: There is a 88-year-old female in need of a peripheral IV. Findings: See below. Details of the procedure: Skin over the intended target site was cleansed with alcohol. A 20-gauge IV catheter was inserted into a left upper arm vein. A sterile dressing was applied over the insertion site. The line was then flushed with sterile saline solution. EBL: Minimal. Fluids: N/A. Specimen: N/A. Post procedure condition: The patient tolerated the procedure well. No complications were noted. Thank you for this consultation. Aric Campbell CRNA
[2018-03-29] MEDS ORDERED: MORPHINE SULFATE 2 MG/ML DISP.SYRIN IV PRN (16:26)
[2018-03-29] MEDS ORDERED: LORazepam 2 MG/ML DISP.SYRIN IV PRN (16:26)
[2018-03-29] MEDS ORDERED: ONDANSETRON HCL/PF 2 MG/ML VIAL IV PRN (16:28)
[2018-03-29] MEDS ORDERED: SCOPOLAMINE HYDROBROMIDE 1.5 MG PATC TD SCH (16:30)
[2018-03-29] MEDS ORDERED: LORazepam 1 MG TABLET PO PRN (18:51)
[2018-03-29] MEDS: MORPHINE SULFATE 10 MG/0.5 ML SYRINGE PO PRN ×2 (19:02→22:27)
[2018-03-29 20:32] VITALS: BP 168/70
[2018-03-30] MEDS: MORPHINE SULFATE 10 MG/0.5 ML SYRINGE PO PRN ×3 (02:37→14:29)
[2018-03-30] MEDS: ENALAPRILAT DIHYDRATE 1.25 MG/ML VIAL IV SCH ×2 (04:40→10:49)
--- NOTE | 2018-03-30 11:23 | DS ---
(1) Mental status change Diagnosis(s): She continues to have altered mental status and is currently been transitioned to comfort care. She will be sent back to the [facility] on hospice. Problem: Acute Qualifiers: Altered mental status type: somnolence Qualified Code(s): R40.0 - Somnolence (2) Hypertension Diagnosis(s): Blood pressure is elevated. No medications indicated because she is currently under comfort measures. Problem: Chronic Qualifiers: Hypertension type: essential hypertension Qualified Code(s): I10 - Essential (primary) hypertension (3) Dementia Diagnosis(s): No changes continue with comfort measures. Problem: Chronic Qualifiers: Dementia type: Alzheimer's disease Description of Stay: 88-year-old female dementia, diabeteswith past medical history of hypertension, atrial fibrillation presents to the emergency room with altered mental status. CT head was negative for any acute abnormalities. She was started on Rocephin for antibiotic. Mentation did not improve. Her right lower extremity was x- rayed she had a history of fall prior to admission. X-rays of the hip knee and ankle showed no fractures. Hospice was consulted and she was deemed a good candidate to be discharged with hospice back to the [facility]. She has currently been transitioned to comfort measures and will be discharged today back to the [facility] with hospice. Procedures Performed: none Results and Findings: Pending Mircobiology Results 03/28/18 10:55 Blood Blood Culture - Preliminary NO GROWTH AFTER 48 HOURS 03/28/18 11:20 Blood Blood Culture - Preliminary NO GROWTH 24 HOURS Lab Pending Results 03/28/18 10:55: WBC 10.3, RBC 4.42, Hgb 13.8, Hct 41.2, MCV 93.2, MCH 31.2 H, MCHC 33.5, RDW 12.1, Plt Count 158, MPV 10.1, Immature Gran % (Auto) 0.50 H, Immature Gran # (Auto) 0.05 H, Neutrophils % 77.5 H, Lymphocytes % 13.9 L, Monocytes % 7.0, Eosinophils % 0.8, Basophils % 0.3, Nucleated RBC % 0.0, Neutrophils # 8.0 H, Lymphocytes # 1.43 L, Monocytes # 0.7, Eosinophils # 0.1, Absolute Basophils 0.0 03/28/18 10:55: Sodium 144 H, Plasma Sodium 146 H, Potassium 4.2, Chloride 104, Carbon Dioxide 28.0, Anion Gap 16.2 H, BUN 12, Creatinine 0.93, Est GFR (Non-Af Amer) 60, BUN/Creatinine Ratio 12.9, Random Glucose 251 H, Calcium 10.8, Calcium Adj for Albumin 11.0 H, Total Bilirubin 0.7, AST 19, ALT 21, Alkaline Phosphatase 117, Total Protein 6.7, Albumin 3.4 03/28/18 10:55: Lactic Acid, Venous 1.2 03/28/18 10:55: Troponin I Less than 0.017 03/29/18 05:34: WBC 9.8, RBC 3.94 L, Hgb 12.3 L, Hct 36.6 L, MCV 92.9, MCH 31.2 H, MCHC 33.6, RDW 12.0, Plt Count 141 L, MPV 9.9, Immature Gran % (Auto) 0.40, Immature Gran # (Auto) 0.04 H, Neutrophils % 76.9 H, Lymphocytes % 12.8 L, Monocytes % 8.8, Eosinophils % 0.8, Basophils % 0.3, Nucleated RBC % 0.0, Neutrophils # 7.6 H, Lymphocytes # 1.26 L, Monocytes # 0.9, Eosinophils # 0.1, Absolute Basophils 0.0 03/29/18 05:34: Sodium 143 H, Plasma Sodium 145 H, Potassium 3.8, Chloride 107 H, Carbon Dioxide 25.7, Anion Gap 14.1 H, BUN 9, Creatinine 0.85, Est GFR (Non- Af Amer) 67, BUN/Creatinine Ratio 10.6, Random Glucose 220 H, Calcium 10.1, Calcium Adj for Albumin 10.7 H, Total Bilirubin 0.7, AST 16, ALT 16 L, Alkaline Phosphatase 105, Total Protein 6.0 L, Albumin 2.9 L Discharge Location: [facility] Disposition: Hospice Home Condition: Poor Discharge Activity: Other Discharge Diet: NPO Referrals: Cristo Olmedo MD [Primary Care Provider] - Prescriptions (Any new or edited meds): Atropine Sulfate [Atropine 1% Ophthalmic Solution] 2 drop SL Q4H PRN #15 ml PRN Reason: Oral Secretions or respiratory Bisacodyl [Dulcolax Suppository] 10 mg RC DAILY PRN #10 supp.rect PRN Reason: Constipation Lorazepam 2 mg PO Q2H PRN 30 Days #20 oral.conc PRN Reason: Anxiety Morphine Sulfate [Morphine Sulfate Conc. Oral Solution] 5 mg PO Q1H PRN #30 ml PRN Reason: pain &/or respiratory distress Ondansetron [Zofran Odt] 4 mg PO Q6H PRN #120 tab PRN Reason: Nausea Complete Home Medications List: Complete Home Medication List: pen needle,diabetic dual safety 30 gauge x 3/16" See Dose Instructions .ROUTE .MEDSUPPLY #100 ea 10/26/17 Atropine Sulfate [Atropine 1% Ophthalmic Solution] 2 drop SL Q4H PRN #15 ml 03/30/18 Bisacodyl [Dulcolax Suppository] 10 mg RC DAILY PRN #10 supp.rect 03/30/18 Lorazepam 2 mg PO Q2H PRN 30 Days #20 oral.conc 03/30/18 Morphine Sulfate [Morphine Sulfate Conc. Oral Solution] 5 mg PO Q1H PRN #30 ml 03/30/18 Ondansetron [Zofran Odt] 4 mg PO Q6H PRN #120 tab 03/30/18
== END 2018-03-30 14:40 | disposition hospice, home (50) | DRG 81 ==
LOC: ER 10:11 → MS 10:11
PROVIDERS: ADMIT Internal Medicine; ATTEND Internal Medicine
CPT/HCPCS: 36415; 70450; 71010; 71045; 73502; 73562; 73610; 80053; 83605; 84484; 85025; 87040; 87081; 93005; 96361; 96374; 97110; 97162; 99285